=== PATIENT | male | born 1985 | race Caucasian/White ===

== ENCOUNTER 2018-06-11 08:08 | Emergency (ER) | payer MEDICAID ==
[~2018-06-11] VITALS: Ht 175.3 cm; Wt 76.0 kg
[2018-06-11] MEDS ORDERED: SODIUM CHLORIDE 0.9% 1,000 ML IV ONE (09:07)
[2018-06-11] MEDS ORDERED: MORPHINE SULFATE 4 MG/ML CPJ (NOT FOR IM USE) IV STA (09:07)
[2018-06-11] MEDS ORDERED: ONDANSETRON HCL 4MG/2ML VIAL IV STA (09:07)
[2018-06-11 09:17] LABS: CLARITY URINE CLEAR (CLEAR); COLOR URINE YELLOW (YELLOW); KETONES URINE TRACE (NEGATIVE); LEUKOCYTE ESTERASE URINE TRACE (NEGATIVE); NITRITE URINE NEGATIVE (NEGATIVE); OCCULT BLOOD URINE NEGATIVE (NEGATIVE); PROTEIN URINE TRACE (NEGATIVE); SPECIFIC GRAVITY URINE 1.027 (1.005-1.030)
[2018-06-11 09:38] LABS: HEMATOCRIT. 48.2 % (42.0-52.0); HEMOGLOBIN. 16.2 g/dL (14.0-18.0); MEAN CORPUSCULAR HEMOGLOBIN 30.8 pg (28.0-32.0); MEAN CORPUSCULAR VOLUME 91.8 fL (80.0-94.0); MEAN PLATELET VOLUME 8.6 fl (7.4-10.4); PLATELET 232 x1000/uL (130-400); RED BLOOD CELL COUNT 5.25 mill/uL (4.7-6.1); RED CELL DISTRIBUTION WIDTH 13.4 % (11.6-14.6)
[2018-06-11 09:45] LABS: CHLORIDE 107 mEq/L (98-107)
[2018-06-11 09:48] LABS: PROTHROMBIN TIME 10.7 sec (9.4-11.6)
[2018-06-11 09:53] LABS: PLATELET ESTIMATE NORMAL
[2018-06-11 09:57] LABS: CARBAMAZEPINE < 0.5 ug/mL (4-12); PHENOBARBITAL < 2.1 ug/mL (15.0-40.0); VALPROIC ACID < 3.0 ug/mL (50-100)
[2018-06-11] MEDS ORDERED: IOHEXOL-300 100 ML BOTTLE ONE (11:11)
[2018-06-11] MEDS ORDERED: VALPROATE SODIUM 500 MG in SODIUM CHLORIDE 0.9% 100 ML IV STA (11:39)
[2018-06-11] MEDS ORDERED: MORPHINE SULFATE 4 MG/ML CPJ (NOT FOR IM USE) IV ONE (11:45)
[2018-06-11] MEDS ORDERED: IOHEXOL-350 100 ML BOTTLE ONE (12:02)
[2018-06-11] MEDS: PHENYTOIN SODIUM 1,000 MG in SODIUM CHLORIDE 0.9% 100 ML IV ONE ×2 (13:00→14:07)
[2018-06-11] MEDS ORDERED: FAMOTIDINE 20MG TABLET PO ONE (13:30)
[2018-06-11 15:00] VITALS: BP 131/81
== END 2018-06-11 15:30 | disposition home or self-care (01) ==
LOC: ER 08:20
DX: R10.84 Generalized abdominal pain (principal); G40.909 Epilepsy, unspecified, not intractable, without status epilepticus; N43.3 Hydrocele, unspecified; R16.0 Hepatomegaly, not elsewhere classified; F12.10 Cannabis abuse, uncomplicated; Z98.890 Other specified postprocedural states
CPT/HCPCS: 36415; 74177; 76705; 80053; 80156; 80165; 80184; 80185; 81003; 83690; 85025; 85610; 85730; 86850; 86900; 86901; 87086; 93005; 96361; 96365; 96367; 96375; 96376; 99285; J1165; J2270; J2405; J3490; J7030; Q9967; J7050

== ENCOUNTER 2020-06-07 03:35 | Emergency (ER) | payer MEDICAID, OTHER ==
[~2020-06-07] VITALS: Ht 180.3 cm; Wt 82.0 kg
[2020-06-07] MEDS ORDERED: ONDANSETRON 4MG ODT PO STA (03:51)
[2020-06-07] MEDS ORDERED: KETOROLAC 60MG/2ML VIAL IM STA (03:51)
[2020-06-07] MEDS ORDERED: DICYCLOMINE 10 MG/5 ML ORAL SYR PO STA (03:51)
[2020-06-07 04:21] LABS: BASOPHILS % 0.9 % (0.0-2.0); EOSINOPHILS % 9.1 % (0.0-5.0); HEMATOCRIT. 45.2 % (42.0-52.0); HEMOGLOBIN. 15.3 g/dL (14.0-18.0); LYMPHOCYTES % 20.8 % (20.0-50.0); MEAN CORPUSCULAR HEMOGLOBIN 31.6 pg (28.0-32.0); MEAN CORPUSCULAR VOLUME 93.4 fL (80.0-94.0); MONOCYTES % 5.5 % (2.0-8.0); NEUTROPHILS % 63.7 % (40.0-76.0); PLATELET 284 x1000/uL (130-400); RED BLOOD CELL COUNT 4.84 mill/uL (4.7-6.1); RED CELL DISTRIBUTION WIDTH 13.8 % (11.6-14.6)
[2020-06-07 04:41] LABS: CHLORIDE 104 mEq/L (98-107)
[2020-06-07 04:45] LABS: ETHANOL BLOOD < 10 mg/dL
[2020-06-07] MEDS ORDERED: HALOPERIDOL LACTATE 5MG/ML VIAL IM NR (05:15)
[2020-06-07] MEDS ORDERED: HYDROCODONE/ACETAMINOPHEN 10/325MG TABLET PO NR (05:15)
[2020-06-07 05:40] VITALS: BP 136/94
== END 2020-06-07 05:45 | disposition home or self-care (01) ==
LOC: ER 03:35
DX: K81.9 Cholecystitis, unspecified (principal); G40.909 Epilepsy, unspecified, not intractable, without status epilepticus; F12.10 Cannabis abuse, uncomplicated
CPT/HCPCS: 36415; 76705; 80053; 80320; 83690; 85025; 96372; 99284; J1630; J1885; Q0162; G0480

== ENCOUNTER 2024-04-08 20:49 | Emergency (ER) | payer MEDICAID, OTHER ==
[~2024-04-08] VITALS: Ht 175.3 cm; Wt 79.0 kg
[2024-04-08 20:55] VITALS: O2SAT 96
[2024-04-08 23:27] LABS: BASOPHILS % 0.2 % (0.0-2.0); HEMATOCRIT. 45.1 % (42.0-52.0); HEMOGLOBIN. 15.5 g/dL (14.0-18.0); LYMPHOCYTES % 7.1 % (20.0-50.0); MEAN CORPUSCULAR HEMOGLOBIN 31.6 pg (28.0-32.0); MEAN CORPUSCULAR HGB CONC 34.4 g/dL (31.0-37.0); MEAN PLATELET VOLUME 9.2 fl (7.4-10.4); MONOCYTES % 4.1 % (2.0-8.0); NEUTROPHILS % 88.6 % (40.0-76.0); PLATELET 274 x1000/uL (130-400); WHITE BLOOD COUNT 10.8 x1000/uL (4.5-11.0)
[2024-04-08] MEDS: SODIUM CHLORIDE 0.9% 1,000 ML IV ONE (23:28)
[2024-04-08] MEDS: ONDANSETRON HCL 4MG/2ML INJ IV STA (23:28)
[2024-04-08 23:33] LABS: CHLORIDE 104 mEq/L (98-107); POTASSIUM 3.5 mEq/L (3.5-5.1); SODIUM 140 mEq/L (136-145)
[2024-04-08 23:35] LABS: CALCIUM 10.1 mg/dL (8.7-10.4); CARBON DIOXIDE 27 mEq/L (21-32)
[2024-04-08 23:40] LABS: CREATININE 0.8 mg/dL (0.6-1.3); GLUCOSE 109 mg/dL (70-105); UREA NITROGEN BLOOD 9 mg/dL (9-23)
[2024-04-08 23:42] LABS: ALANINE AMINOTRANSFERASE 19 IU/L (10-49); ALBUMIN 4.9 g/dL (3.2-4.8); ASPARTATE AMINOTRANSFERASE 18 IU/L (<34); BILIRUBIN DIRECT 0.1 mg/dL (<=3.0)
[2024-04-08 23:43] LABS: BILIRUBIN TOTAL 0.4 mg/dL (0.1-1.0); PROTEIN TOTAL 7.7 g/dL (6.0-8.3)
[2024-04-09] MEDS ORDERED: ONDA4TAB50 MT (02:02)
[2024-04-09 03:15] VITALS: BP 99/54; PULSE 71; RESP 18; TEMP 98.5
== END 2024-04-09 03:22 | disposition home or self-care (01) ==
LOC: ER 20:49
DX: R11.2 Nausea with vomiting, unspecified (principal); R19.7 Diarrhea, unspecified
CPT/HCPCS: 99285; 96374; 96361; 80076; 80048; 83605; 83690; 85025; 36415; J2405; J7030